=== PATIENT | male | born 1990 | race Caucasian/White ===

== ENCOUNTER 2023-08-31 21:53 | Emergency (ER) | payer OTHER, SELFPAY ==
[2023-08-31 21:57] VITALS: BP 130/70
--- NOTE | 2023-08-31 23:49 | ED.GENMED ---
History of Present Illness
<ELBERT Rizo - Last Filed: 09/01/23 00:02>
General
Chief Complaint: Musculo-Skeletal Complaint
Source: patient and family
Time Seen by Provider: 08/31/23 23:38
Travel History
Have you had any contact with someone who has COVID-19?: No
Do you have any symptoms of coronavirus? Fever > 100 degrees, chills, cough, shortness of breath, sore throat, loss of taste or smell, muscle aches, or headache?: No
History of Present Illness
History of Present Illness:
33 year old male with no significant past medical hx who presents with L knee and L ankle pain that began 1 day ago after playing a volleyball-like game. Pt states he struck his L heel and possibly hyperextended his knee and fell to the ground.
Denies head injury or injury to other extremities. He has had increasing pain to his ankle and knee since then. Pain is currently 5/10 in pain and is 10/10 with weight bearing. He has limited range of motion due to pain. He took Advil yesterday, but
none today. He has been using a knee brace and crutches to get around. Denies neck, back, head pain.
Past History
<ELBERT Rizo - Last Filed: 09/01/23 00:02>
Past History
ED Past Medical History: Asthma and Other (Celiac disease, ADD, ADHD,)
ED Past Surgical History: Tonsilectomy (and adnoids)
Social History
Tobacco: Non-smoker
Alcohol: None
Personal: Single
Living: with family
Employment: Employed (delivers newpapers)
Review of Systems
<ELBERT Rizo - Last Filed: 09/01/23 00:02>
Review of Systems
Allergies reviewed?: Yes
All Other Systems: ROS reviewed and negative except as documented in HPI and ROS
Constitutional: Reports no symptoms
EENT: Reports no symptoms
Respiratory: Reports no symptoms
Cardiac: Reports no symptoms
ABD/GI: Reports no symptoms
: Reports no symptoms
Musculoskeletal: Reports joint pain (L knee and ankle)
Skin: Reports no symptoms
Neurological: Reports no symptoms
Endocrine: Reports no symptoms
Hematologic/Lymphatic: Reports no symptoms
Psychiatric: Reports no symptoms
Phy Exam
<ELBERT Rizo - Last Filed: 09/01/23 00:02>
General Physical Exam
General Presentation: well appearing and no apparent distress
General age: appears stated age
General Skin: warm and dry
General Habitus: normal
General Mental: alert
General Hydration: appears well hydrated
Cardiovascular Exam
Cardiovascular Exam: regular rate/rhythm, no edema, no gallop, no murmur and normal peripheral pulses
Pulmonary Exam
Pulmonary Exam: lungs clear, no respiratory distress, no rales, no crackles, no rhonchi, no wheezing and no cough
Neurological Exam
Neurological Exam: alert, oriented x3, no motor deficits, no sensory deficits and abnormal gait
Musculoskeletal Exam
Musculoskeletal Exam: neuro vasc intact (LLE) and other (limited ROM of L knee and L ankle due to pain, mild redness and tenderness to palpation to L medial malleolus and L anterior knee, no swelling to L knee or L ankle, )
Skin Exam
Skin Exam: normal color and warm/dry
Psychiatric Exam
Psychiatric Exam: normal mood/affect
Course
<ELBERT Rizo - Last Filed: 09/01/23 00:02>
Orders/Labs/Results
Orders:
Orders
08/31/23 22:00
Knee, Left 4 or More Views [CR Knee - Left 4 Or More View*] Urgent
Comment:
Reason For Exam: INJURED PLAYING SPORTS
08/31/23 23:59
Ketorolac [Toradol] 60 mg IM NOW STA
09/01/23 00:00
Ankle, left 3 view CR [CR Ankle - Left Min 3 Views ] Urgent
Comment:
Reason For Exam: twisted L ankle-medial ankle pain
09/01/23 00:32
Pedro Wrap Left-Treatment ONCE
Vital Signs
Initial and Last Documented VS:
Initial Vital Signs
Temp Pulse Resp BP Pulse Ox
97.8 F 94 22 130/70 98
08/31/23 21:57 08/31/23 21:57 08/31/23 21:57 08/31/23 21:57 08/31/23 21:57
Last Documented Vital Signs
Temp Pulse Resp BP Pulse Ox
97.8 F 94 22 130/70 98
08/31/23 21:57 08/31/23 21:57 08/31/23 21:57 08/31/23 21:57 08/31/23 21:57
<Fartun Mena, DO - Last Filed: 09/01/23 00:43>
Orders/Labs/Results
Orders:
Orders
08/31/23 22:00
Knee, Left 4 or More Views [CR Knee - Left 4 Or More View*] Urgent
Comment:
Reason For Exam: INJURED PLAYING SPORTS
08/31/23 23:59
Ketorolac [Toradol] 60 mg IM NOW STA
09/01/23 00:00
Ankle, left 3 view CR [CR Ankle - Left Min 3 Views ] Urgent
Comment:
Reason For Exam: twisted L ankle-medial ankle pain
09/01/23 00:32
Pedro Wrap Left-Treatment ONCE
Vital Signs
Initial and Last Documented VS:
Initial Vital Signs
Temp Pulse Resp BP Pulse Ox
97.8 F 94 22 130/70 98
08/31/23 21:57 08/31/23 21:57 08/31/23 21:57 08/31/23 21:57 08/31/23 21:57
Last Documented Vital Signs
Temp Pulse Resp BP Pulse Ox
97.8 F 94 22 130/70 98
08/31/23 21:57 08/31/23 21:57 08/31/23 21:57 08/31/23 21:57 08/31/23 21:57
<ELBERT Rizo - Last Filed: 09/01/23 00:02>
MDM/Problems Addressed
Differential Diagnosis Includes:
L knee and ankle muscle sprain, meniscal injury, fracture, dislocation
MDM/Problems Addressed:
33 year old male who presents with L knee and L ankle pain that began 1 day ago.
<ELBERT Rizo - Last Filed: 09/01/23 00:02>
*Critical Care Note
Total Time (30-74mins, 75-104mins- exclusive of procedures): Not Applicable
<Fartun Mena DO - Last Filed: 09/01/23 00:43>
*Radiology
Radiology exam reviewed: preliminary read by ED provider (Left ankle x-ray shows no evidence of fracture.) and radiology read reviewed
*Pulse Oximetry
Patient hypoxic: no
ED Attending Note
<ELBERT Rizo - Last Filed: 09/01/23 00:02>
-
Portions of this chart may have been created with voice recognition software.� Occasional wrong word or��sound alike� substitutions may have occurred due to the inherent limitations of voice recognition software.
<Fartun Mena DO - Last Filed: 09/01/23 00:43>
ED Attending Note
Patient seen and examined by attending physician: Yes
I performed the substantive portion of visit, reviewed & personally made and approve the management plan that is documented in note by myself or VALENTINA.: Yes
I performed a history and physical exam of patient and discussed management with resident, I reviewed resident's note and agree with documented findings and plan of care.: Yes
ED Attending Note:
This is a 33-year-old male who complains of left anterior medial knee pain as well as left medial ankle pain that began yesterday while participating in a volleyball type game he came down hard on his left ankle and twisted his left ankle as well as
his left knee and fell to the ground. He denies head injury nor loss of consciousness. He has had continued pain to his left knee and left ankle, inability to bear weight. He has been using crutches for ambulation and placed a neoprene
sleeve/brace on his left knee. He did take Advil yesterday with moderate relief.
He denies weakness or numbness, no neck pain or back pain, no chest pain or abdominal pain.
He has not noticed swelling of his knee nor ankle but admits to inability to fully extend his knee related to pain primarily anteriorly.
TRAUMA EXAM:
VITAL SIGNS: Vital signs reviewed, cooperative
DISTRESS: No active disease
EYES: Pupils reactive, no orbital trauma
NOSE: No deformity or epistaxis
FACE AND SCALP: No scalp or facial trauma, external canals no blood
NECK: Supple nontender
BACK: Back nontender, pelvis stable to compression
RESPIRATORY: No distress, breath sounds normal, no tender chest wall
CARDIAC: No murmur, pulses equal and strong
ABDOMEN: Soft nontender bowel sounds normal
SKIN: Skin intact no bleeding, color normal
EXTREMITIES: Left knee has no palpable effusion, moderate tenderness anteromedial aspect just medial to the patellar tendon. There is mildly restricted extension related to pain. No crepitus. No gross deformity nor palpable bony abnormality.
Left ankle has mild to moderate tenderness medial aspect with minimal soft tissue swelling medial distal ankle. There is full ankle range of motion with increased pain with flexion and extension. No tenderness to the foot nor lower leg.
Peripheral pulses are full and equal bilaterally. Sensation and strength intact.
NEUROLOGICAL: Alert, oriented, no motor deficits
PSYCH: Mood affect normal
Concern for left knee sprain/strain. There is no joint effusion thus significant internal derangement is less likely.
Left knee x-ray, read by radiologist shows trace suprapatellar joint fluid otherwise unremarkable.
I suspect left knee sprain and recommend continuing neoprene brace, continue crutches/nonweightbearing until able to bear weight. Will give an IM dose of Toradol now for pain.
Will check left ankle x-ray.
09/01/2023 0039 AM
Left ankle x-ray, initial interpretation by myself shows no acute fracture.
Will place Pedro wrap on left ankle for left ankle sprain.
Prescription for Motrin for as needed pain.
Discussed conservative measures, ice, elevation, compression.
Follow-up with PCP as well as orthopedics as needed.
Patient has seen Dr. Hernandez in the past, right knee arthroscopy [address] Hernandez does not accept his current insurance plan. Recommend he touch base with his PCP for referral to orthopedics.
Discharge Plan
Departure
Patient Disposition: Home (Routine Discharge)
Date of Disposition: 09/01/23
Time of Disposition: 00:41
Patient with high blood pressure during this ER visit?: No
Condition: Good
Discharge Problem:
acute left knee sprain, acute left ankle sprain
Instructions: Ankle Sprain ED, Knee Sprain ED
Prescriptions:
New
ibuprofen 800 mg tablet
800 mg PO QIDPRN PRN (Reason: pain, fever) Qty: 30 0RF
Referrals:
Sotero Raza DO [Family Provider] - Call in 1-3 days for appt
Interventions
Interventions:
*Risk Screen - Suicide Last Done: 08/31/23 21:57
*General Assessment Last Done: 08/31/23 23:46
*Neglect/Abuse Screening Last Done: 08/31/23 21:57
ED- Fall Risk Assessment Last Done: 08/31/23 23:46
*ED COVID-19 Vaccine History Last Done: 08/31/23 23:46
ED-Musculoskeletal Assessment Last Done: 08/31/23 23:46
Discharge Date and Time
Print Language: KOREAN
[2023-09-01] MEDS: TORADOL 60 MG IM (00:09)
[2023-09-01 01:00] VITALS: BP 125/78
== END 2023-09-01 01:09 | disposition home or self-care (01) ==
LOC: EMR 21:53
PROVIDERS: EMERGENCY PHYSICIAN Emergency Medicine; FAMILY PHYSICIAN Family Medicine
DX: S83.92XA Sprain of unspecified site of left knee, initial encounter (principal); S93.402A Sprain of unspecified ligament of left ankle, initial encounter; X50.1XXA Overexertion from prolonged static or awkward postures, initial encounter
CPT/HCPCS: 99284; 96372; 73564; 73610

== ENCOUNTER 2024-01-23 22:06 | Emergency (ER) | payer OTHER, SELFPAY ==
[2024-01-24 00:01] VITALS: BMI 20.8
[2024-01-24] MEDS: NSS 1000 IV (00:01)
[2024-01-24] MEDS: OMNIPAQUE 50 ML PO (00:02)
[2024-01-24 00:24] LABS: Urine Albumin Trace (Neg - Trace); Urine Bilirubin Negative (Negative); Urine Character Clear (Clear); Urine Color Yellow; Urine Glucose Negative (Negative); Urine Ketone Negative (Negative); Urine Leukocyte Negative (Negative); Urine Nitrite Negative (Negative); Urine Occult Blood Negative (Negative); Urine Specific Gravity 1.015 (<1.030); Urine Urobilinogen 1+ (Neg - 1+)
[2024-01-24 00:28] LABS: % Basophils 1.5 % (0-2); % Eosinophils 4.9 % (0-6); % Immature Granulocytes 0.8 % (0-0.5); % Lymphocytes 35.5 % (20.5-51.1); % Monocytes 8.4 % (1.7-9.3); % Neutrophils 48.9 % (42.2-75.2); Absolute Basophils 0.1 10^3/uL (0-0.2); Absolute Eosinophils 0.3 10^3/uL (0-0.7); Absolute Immature Granulocytes 0.1 10^3/uL (0-0.05); Absolute Lymphocytes 2.3 10^3/uL (1.2-3.4); Absolute Monocytes 0.6 10^3/uL (0.1-0.6); Absolute Neutrophils 3.2 10^3/uL (1.4-6.5); Hematocrit 43.2 % (39.0-52.0); Hemoglobin 15.4 g/dL (13.0-18.0); Mean Corp Hgb Conc. 35.6 g/dL (33.0-37.0); Mean Corpuscular Hgb 30.7 pg (27.0-31.0); Mean Corpuscular Volume 86.2 fL (80.0-94.0); Mean Platelet Volume 10.7 fL (7.4-10.4); Nucleated Red Blood Cells % 0 % (-); Platelet Count 248 10^3/uL (130-400); Red Blood Cell Count 5.01 10^6/uL (4.70-6.10); Red Cell Dist. Width 12.6 % (11.5-14.5); White Blood Cell Count 6.5 10^3/uL (4.8-10.8)
--- NOTE | 2024-01-24 00:37 | ED.GENMED ---
History of Present Illness
General
Chief Complaint: Abdominal Pain
Source: patient
Exam Limitations: none
Time Seen by Provider: 01/23/24 23:16
History of Present Illness
History of Present Illness:
This is a 33 year old male that comes in with c/o having diarrhea. States that he has not had a solid stool in a week. States that he did vomit earlier. Sates that he has a headache on the right sided of his head States that he had chills, and
vomited 4-5 times. States that with the headache he feels a little lightheaded. Denies any fever, chest pain, SOB, abd pain, dizziness, urinary burning.
Past History
Past History
ED Past Medical History: Asthma (As a kid) and Other (Celiac disease, ADD, ADHD,); Negative HTN, Hypercholesterolemia or NIDDM
ED Past Surgical History: Orthopedic (Right meniscus ) and Tonsilectomy (and adnoids)
Social History
Tobacco: Non-smoker
Alcohol: None
Personal: Single
Living: with family
Employment: Employed (delivers newpapers)
Review of Systems
Review of Systems
All Other Systems: ROS reviewed and negative except as documented in HPI and ROS
Constitutional: Reports chills; Denies fever
EENT: Reports no symptoms
Respiratory: Reports no symptoms; Denies cough or trouble breathing
Cardiac: Reports no symptoms; Denies chest pain
ABD/GI: Reports nausea, vomiting and diarrhea; Denies abdominal pain
: Reports no symptoms; Denies dysuria, frequency or urgency
Musculoskeletal: Reports no symptoms
Skin: Reports no symptoms
Neurological: Reports headache and other (Lightheaded); Denies dizzy
Psychiatric: Reports no symptoms
Phy Exam
General Physical Exam
General Presentation: well appearing and no apparent distress
General age: appears stated age
General Skin: warm and dry
General Habitus: normal
General Mental: alert
General Hydration: appears well hydrated
ENT Exam
ENT Exam: TM's normal, pharynx normal and neck supple
Eye Exam
Eye Exam: EOMI
Cardiovascular Exam
Cardiovascular Exam: regular rate/rhythm, no edema, no gallop and no JVD
Pulmonary Exam
Pulmonary Exam: lungs clear, no respiratory distress, no rales, chest non tender, no crackles, no rhonchi, no wheezing and no cough
Gastrointestinal Exam
Gastrointestinal Exam: normal bowel sounds, non tender, soft, no organomegaly, no pulsatile mass and non distended
Musculoskeletal Exam
Musculoskeletal Exam: full ROM and no edema
Skin Exam
Skin Exam: normal color, warm/dry, no rash and no petechia
Psychiatric Exam
Psychiatric Exam: normal mood/affect
Course
Orders/Labs/Results
Orders:
Orders
01/23/24 23:28
Complete Blood Count/With Diff Urgent
Comprehensive Metabolic Panel Urgent
0.9% Sodium Chloride 1000 ml [Nss] 1,000 ml IV BOLUS
Iohexol [Omnipaque] See Protocol PO NOW STA
01/24/24 00:04
Urinalysis Reflex To Culture Urgent
Date Specimen was Collected: 01/24/24
Time Specimen was Collected: 00:03
01/24/24 00:07
CT Abd/pel W Iv And Oral Contr Urgent
Reason For Exam: Upper abd pain
Abnormal Lab Results
01/24/24
00:04
MPV 10.7 H fL
(7.4-10.4)
Abs Immat Gran (auto) 0.1 H 10^3/uL
(0-0.05)
Immature Gran % 0.8 H %
(0-0.5)
BUN 23 H mg/dl
(9-20)
01/24/24 00:04
01/24/24 00:04
CBC normal. Slight Dehydration. Urine negative for infection.
Vital Signs
Initial and Last Documented VS:
Initial Vital Signs
Temp Pulse Resp Pulse Ox
97.8 F 93 18 98
01/23/24 22:07 01/23/24 22:07 01/23/24 22:07 01/23/24 22:07
Last Documented Vital Signs
Temp Pulse Resp BP Pulse Ox
97.8 F 67 18 121/76 99
01/23/24 22:07 01/24/24 02:29 01/24/24 02:29 01/24/24 02:29 01/24/24 02:29
MDM/Problems Addressed
Differential Diagnosis Includes:
Enteritis, Viral syndrome
MDM/Problems Addressed:
This is a 33 year old male that comes in with c/o not having a solid stool in a week. Today patient started with nausea and vomiting. States that he also had a headache more on the right side.
Will get labs and CT abd. Will also give IV fluids.
Back into see patient. Explained that his CT is normal. This is most likely a viral illness. Will give patient a prescription for Zofran and have patient increase his water intake. Patient to follow up with the family doctor return with any
concerns.
Chronic conditions affecting care:
Celiac disease,
Acute Exacerbation and/or Progression of Chronic Illness:
NA
*Radiology
Radiology exam reviewed: radiology read reviewed (CT night hawk- NO bowel obstruction or other acute finding. Normal gallbladder, kidneys, pancreas. Appendix not definitely seen. )
*Pulse Oximetry
Patient hypoxic: no
*EKG
Interpreted by ED Provider?: NA
Rate: EKG- N/A
*Range Ecologist Interpretation
Rate: Range Ecologist- N/A
*Critical Care Note
Total Time (30-74mins, 75-104mins- exclusive of procedures): Not Applicable
ED Attending Note
-
Portions of this chart may have been created with voice recognition software.� Occasional wrong word or��sound alike� substitutions may have occurred due to the inherent limitations of voice recognition software.
Discharge Plan
Departure
Patient Disposition: Home (Routine Discharge)
Date of Disposition: 01/24/24
Time of Disposition: 02:58
Patient with high blood pressure during this ER visit?: No
Condition: Good
Covid-19: Not Applicable
Discharge Problem:
Nausea & vomiting, Diarrhea
Instructions: Diarrhea in teens and adults, Nausea and Vomiting, Adult (DC)
Prescriptions:
New
ondansetron 4 mg tablet,disintegrating
4 mg PO Q8H PRN (Reason: nausea and vomiting) Qty: 10 0RF
No Action
ibuprofen 800 mg tablet
800 mg PO QIDPRN PRN (Reason: pain, fever) Qty: 30 0RF
Referrals:
Sotero Raza DO [Family Provider] - Follow up in 2-3 days
Stand Alone Forms: Return to Work
Activity Restrictions/Additional Instructions:
As discussed, your blood work shows slight Dehydration. You have been given IV fluids here. Your CT is negative for any acute process. You have had a prescription for Zofran sent to your pharmacy. Please increase your water intake to 8-8oz glasses
daily. Follow up with the family doctor for recheck. IF YOU HAVE FEVER, VOMITING THAT IS NOT CONTROLLED OR YOU HAVE ANY OTHER CONCERNS PLEASE RETURN TO THE EMERGENCY ROOM.
Interventions
Interventions:
*Risk Screen - Suicide Last Done: 01/24/24 02:29
*General Assessment Last Done: 01/23/24 22:07
*Neglect/Abuse Screening Last Done: 01/24/24 02:29
ED- Fall Risk Assessment Last Done: 01/24/24 02:29
*ED COVID-19 Vaccine History Last Done: 01/24/24 00:03
IQ-Esdmmg-Lidzzhnefy Assessment Last Done: 01/24/24 02:29
Discharge Date and Time
Print Language: WALLISIAN
[2024-01-24 00:39] LABS: ALT (SGPT) 36 U/L (0-50); AST (SGOT) 29 U/L (17-59); Albumin 4.5 g/dl (3.5-5.0); Alkaline Phosphatase 81 U/L (38-126); Blood Urea Nitrogen 23 mg/dl (9-20); Calcium 9.5 mg/dl (8.4-10.2); Carbon Dioxide 28 mmol/L (22-30); Chloride 102 mmol/L (98-107); Estimated Creatinine Clearance 83 ml/min; Glucose 86 mg/dl (70-99); Potassium 3.8 mmol/L (3.5-5.1); Sodium 141 mmol/L (135-145); Total Bilirubin 0.4 mg/dl (0.2-1.3); Total Protein 7.2 g/dl (6.3-8.2); eGFR > 60.00
[2024-01-24 02:29] VITALS: BP 121/76
[2024-01-24] MEDS: ZOFRAN 4 MG IV (02:58)
== END 2024-01-24 03:08 | disposition home or self-care (01) ==
LOC: EMR 22:06
PROVIDERS: Clinical Nurse Specialist Family Health; EMERGENCY PHYSICIAN Emergency Medicine; FAMILY PHYSICIAN Family Medicine
DX: R11.2 Nausea with vomiting, unspecified (principal); R19.7 Diarrhea, unspecified; J45.909 Unspecified asthma, uncomplicated; K90.0 Celiac disease; F90.9 Attention-deficit hyperactivity disorder, unspecified type; E86.0 Dehydration
CPT/HCPCS: 99284; 96374; 96361; 74177; 80053; 81003; 85025; Q9967